=== PATIENT | male | born 1965 | race Caucasian/White ===

== ENCOUNTER 2023-05-06 16:09 | Outpatient (CLI) | payer OTHER, SELFPAY | END 2023-05-06 16:10 | disposition home or self-care (01) | LOC: NFLDREF 05-07 18:32 | PROVIDERS: PCP Family Medicine; Referring Provider Family Medicine; Visit Provider Nurse Practitioner Family | DX: R10.9 Unspecified abdominal pain (principal) | CPT/HCPCS: 87338 ==

== ENCOUNTER 2023-08-27 14:15 | Outpatient (CLI) | payer OTHER, SELFPAY | END 2023-08-27 14:16 | disposition home or self-care (01) | LOC: NFLDREF 08-29 06:21 | PROVIDERS: PCP Family Medicine; Referring Provider Family Medicine; Visit Provider Family Medicine | DX: R30.0 Dysuria (principal); Z12.5 Encounter for screening for malignant neoplasm of prostate | CPT/HCPCS: 84153 ==

== ENCOUNTER 2024-03-12 13:23 | Outpatient (CLI) | payer OTHER, SELFPAY ==
--- NOTE | 2024-03-12 13:45 | MR_ITS ---
[address] [address] Phone:?[phone] Fax:?[phone] Referring Physician Information: Denis Leyva M.D. [id number] [facility] [address] Phone:?[phone] Fax:?[phone] Patient:?Bentley An D.O.B:?1965 Sex:?Male Phone:?[phone] [facility] MRN:?[id number] Exam Date:?03/12/2024 EXAM: MRI of the RIGHT SHOULDER, without contrast CLINICAL: Evaluate for rotator cuff tear. COMPARISONS: X-rays dated 03/11/2024. TECHNICAL: Multiplanar multisequence MRI of the right shoulder was obtained. SEDATION: None. CONTRAST: None. FINDINGS: Rotator cuff: Supraspinatus/Infraspinatus: There is high-grade near full-thickness to full- thickness tearing involving the far anterior distal supraspinatus tendon seen on coronal series 4 images 8-9 and sagittal series 8 image 6-8. Moderate tendinosis and mild partial tearing of the remainder of the supraspinatus tendon and also involving the infraspinatus tendon. No significant fatty atrophy of the muscle bellies. Teres minor: No tendinosis, tear or atrophy. Subscapularis: There is high-grade partial tearing of the distal tendon seen on axial series 3.2 image 47. No significant fatty atrophy of the muscle belly. Bursae: Subacromial-subdeltoid: Mild bursal fluid. Subcoracoid: Moderate bursal fluid. Coracoacromial arch: Acromion morphology: Type II. No os acromiale. Acromiohumeral space: Within normal limits. Coracohumeral space: Within normal limits. Biceps tendon, long head: There is mild partial interstitial tearing of the intra-articular tendon. There is medial subluxation of the tendon in relation to the bicipital groove as seen on axial series 3.2 images 46-47. There is moderate fluid about the imaged proximal extra-articular tendon. Glenohumeral joint: Small volume of glenohumeral joint fluid is present with mild synovitis. Articular cartilage: No discrete chondral defects identified. Capsule: No convincing evidence of capsular thickening or injury. Labrum: There is mild degenerative fraying of the superior labrum. Remainder of the glenoid labrum appears intact. No perilabral cyst identified. Bones: No suspicious marrow signal alteration, fracture or dislocation. Acromioclavicular joint: Mild changes of arthrosis. No AC joint injury/widening. IMPRESSION: 1. High-grade near full-thickness to full-thickness tearing involving the far anterior distal supraspinatus tendon. Moderate tendinosis and mild partial tearing of the remainder of the supraspinatus tendon and also involving the infraspinatus tendon. 2. High-grade partial tearing of the distal subscapularis tendon. 3. Mild partial interstitial tearing of the intra-articular long head biceps tendon with medial subluxation of the tendon in relation to the bicipital groove. 4. Mild AC joint arthrosis. 5. Moderate subcoracoid bursitis with mild fluid within the subacromial/subdeltoid bursa. JCZ Electronically signed on 03/13/2024 9:01:00 AM by Toño Ortega D.O.
== END 2024-03-12 13:24 | disposition home or self-care (01) ==
LOC: MRI 13:24
PROVIDERS: PCP Family Medicine; Visit Provider Orthopaedic Surgery
DX: M25.511 Pain in right shoulder (principal); M75.101 Unspecified rotator cuff tear or rupture of right shoulder, not specified as traumatic; M19.011 Primary osteoarthritis, right shoulder; M75.51 Bursitis of right shoulder
CPT/HCPCS: 73221

== ENCOUNTER 2024-03-16 08:08 | Outpatient (CLI) | payer OTHER, SELFPAY | END 2024-03-16 08:09 | disposition home or self-care (01) | PROVIDERS: PCP Family Medicine; Visit Provider Family Medicine | DX: Z01.818 Encounter for other preprocedural examination (principal); E78.2 Mixed hyperlipidemia; Z12.5 Encounter for screening for malignant neoplasm of prostate | CPT/HCPCS: 80048; 80061; G0103 ==

== ENCOUNTER 2024-03-26 06:35 | Day surgery (SDC) | payer OTHER, SELFPAY ==
[2024-03-26] VITALS (14 sets, daily range): BP systolic 92–132; BP diastolic 47–75; PULSE 56–66; RESP 12–16; TEMP 36.3–36.9; O2SAT 94–98; BMI 24.0
[2024-03-26] MEDS: LACTATED RINGERS 1000 ML 1,000 ML 100 ML IV ×2 (07:20→09:21)
[2024-03-26] MEDS: SODIUM CHLORIDE 0.9 % (FLUSH) 10 ML SYRINGE IVF (07:20)
--- NOTE | 2024-03-26 08:02 | W.PM.H&PU ---
History & Physical Update History & Physical Update H&P Reviewed and patient assessed: No changes noted
[2024-03-26] MEDS: CEFAZOLIN 2 GM INJ IVP (08:14)
--- NOTE | 2024-03-26 08:53 | SUR.OPER ---
PATIENT QUESTIONS ANSWERED SATISFACTORILY PREOPERATIVELY. PATIENT BROUGHT TO OR #1 PER CART. Patient positioned supine on OR #1 bed. The perioperative team supported arms bilaterally on arm boards for the intubation. Final approval of positioning by surgeon.
--- NOTE | 2024-03-26 10:17 | W.ANESCHARGE ---
Anesthesia Charges Start Date/Time Anesthesia Start Date: 03/26/24 Anesthesia Start Time: 08:00 Stop Date/Time Anesthesia Stop Date: 03/26/24 Anesthesia Stop Time: 10:16
--- NOTE | 2024-03-26 10:47 | W.ANESCHARGE ---
Anesthesia Charges Start Date/Time Anesthesia Start Date: 03/26/24 Anesthesia Start Time: 08:00 Stop Date/Time Anesthesia Stop Date: 03/26/24 Anesthesia Stop Time: 10:16
[2024-03-26] MEDS: ACETAMINOPHEN 325 MG TABLET 650 MG PO (11:00)
--- NOTE | 2024-03-26 13:44 | PM.GSPRC ---
Operative Note Date of procedure: 03/26/24 Pre-op diagnosis: bilateral inguinal hernias Post-op diagnosis: 1. Left inguinal hernia, small indirect and large direct 2. Right inguinal hernia, small indirect Type of Procedure: bilateral laparoscopic inguinal hernia repair with placement of mesh Indications: Patient is a 58-year-old male who presented to clinic with a symptomatic left inguinal hernia. There was also a small right inguinal hernia appreciated on examination. Different treatment options were reviewed, please see consultation note for full discussion. Risks and benefits of operative intervention were discussed at length with the patient. Risks included but was not limited to: Bleeding, infection, risk of damage to surrounding structures, possible need for additional procedures, possible need to convert to an open operation and postoperative complications such as pneumonia, pulmonary emboli or RI. All questions and concerns were addressed with the patient agreeing to proceed. Procedure Description: After discussing the risks and benefits of the procedure, the patient signed informed consent.? The operative site was marked and the patient was brought to the operating room and placed on the operating table in supine position.? Care was taken to pad the patient's pressure points.?? The patient was then intubated by anesthesia.?? The operative site was then prepped and draped in the usual sterile fashion.? A time-out was then performed. A curvilinear incision was made below the umbilicus. Dissection was carried down to subcutaneous tissue until the anterior rectus fascia was encountered. This was incised off the midline. The rectus muscles were then retracted exposing the posterior fascia. A space maker port with a dissecting balloon was then introduced. The preperitoneal space was inflated under direct vision. The balloon was then removed and the preperitoneal space insufflated. A 10 mm 30 degree scope was then advanced and the area was surveyed for bleeding. Dissection began on the left side. Александр's ligament and the pubic bone was exposed medially. Following this dissection was carried out laterally. A small indirect and large defect was noted. The sac was dissected free from the cord structures using a combination of sharp and blunt dissection. Once the sac was completely reduced, the cord structures were dissected circumfrentially and a piece of Parietex mesh for the appropriate side was placed into the abdomen. This was positioned around the cord structures. A Tacker was used to attach the mesh medially at Александр's ligament. A single tack was placed laterally, taking care not to injure the underlying epigastrics. Attention was turned to the opposite side where a small indirect defect was noted and repair was completed in the same fashion. Once this was completed the sac was placed on top of the mesh and the preperitoneal space desufflated under direct vision. The ports were removed. The fascia from the infraumbilical port was closed with 0 Vicryl. The skin incisions were closed with absorbable subcuticular suture. Sterile dressings were then applied. The scrotum was examined to ensure that both testicles were down. Instrument sponge and needle counts were correct at the end of the case. Findings: left inguinal hernia, small indirect and large direct. right inguinal hernia, small indirect Anesthesia: GETRoger Surgeon: Ashley Toledo MD Estimated blood loss (mL): 5 Condition: stable Disposition: PACU
== END 2024-03-26 12:45 | disposition home or self-care (01) ==
PROVIDERS: PCP Family Medicine; Visit Provider Surgery
PROC: (CPT 49650; principal; 2024-03-26 08:00)
DX: K40.20 Bilateral inguinal hernia, without obstruction or gangrene, not specified as recurrent (principal)
CPT/HCPCS: 49650; 00860; 99284; A9270; C1781; J0690; J1100; J1885; J2250; J2405; J2704; J2710; J3010; J7120

== ENCOUNTER 2024-03-26 21:18 | Emergency (ER) | payer OTHER, SELFPAY ==
[2024-03-26 21:35] VITALS: BP 130/69; PULSE 96; RESP 16; TEMP 36.6; O2SAT 96; BMI 24.1
--- NOTE | 2024-03-26 22:54 | ED.GENADULT ---
HPI - General Adult General Chief complaint: Post Op Complication Stated complaint: Post-surgery, frequent urination, high heart rate Time Seen by Provider: 03/26/24 22:07 Source: patient, RN notes reviewed and old records reviewed Mode of arrival: ambulatory Limitations: no limitations History of Present Illness HPI narrative: Patient is a 58-year-old male who underwent located inguinal hernia repair under general anesthesia earlier today. He was discharged at 12:30 p.m.. He comes in tonight because he says his heart rate which usually is 55 has been 93 especially when he is up and walking around. Also, he has urinated 11 time since getting home. He does not have any dysuria. He has not had any bleeding or bruising from his incisions. No lightheadedness or fainting. Apparently he had a short run of SVT when he was undergoing a stress test at [place] number of years ago. He was concerned about possible SVT or other malignant cause for his unusually elevated heart rate. Related Data Home Medications Medication Instructions Recorded Confirmed famotidine 20 mg tablet (Pepcid) 20 mg PO QDAY 06/03/23 03/26/24 Saccharomyces boulardii 250 mg 250 mg PO BID 07/26/23 03/26/24 capsule (Daily Probiotic (S. boulardii)) loratadine 10 mg tablet (Claritin) 10 mg PO QDAY 03/11/24 03/26/24 [id number] 150 mcg-vit K1 tab PO 03/11/24 03/19/24 30 mcg-lycop 300 mcg-lutein tablet (Centrum Minis Men 50 Plus) Previous Rx's Medication Instructions Recorded triamcinolone acetonide 0.1 % 1 applic topical BID #30 grams 04/03/23 topical cream acyclovir 5 % topical ointment 1 applic topical 6XD 7 days #30 07/07/23 grams alprazolam 0.25 mg tablet 0.25 mg PO QDAY PRN anxiety #30 07/16/23 tabs atenolol 25 mg tablet 25 mg PO QDAY #90 tabs 03/16/24 finasteride 5 mg tablet 5 mg PO QDAY #90 tabs 03/16/24 pravastatin 40 mg tablet 40 mg PO QDAY #90 tabs 03/16/24 hydrocodone 5 mg-acetaminophen 325 1 tab PO Q4-6H PRN pain #15 tabs 03/19/24 mg tablet Allergies Allergy/AdvReac Type Severity Reaction Status Date / Time sertraline [From Zoloft] Allergy Severe Dizziness Verified 03/26/24 21:35 [facility] Medical History (Updated 03/26/24 @ 22:47 by Nydia Jamison MD) HSV-2 (herpes simplex virus 2) infection ?B00.9 - Herpesviral infection, unspecified (ICD-10) Supraventricular tachycardia ?I47.1 - Supraventricular tachycardia (ICD-10) Hyperlipidemia ?E78.5 - Hyperlipidemia, unspecified (ICD-10) Anxiety (12/15/12) ?F41.9 - Anxiety disorder, unspecified (ICD-10) Urethritis ?N34.2 - Other urethritis (ICD-10) Abdominal pain ?R10.9 - Unspecified abdominal pain (ICD-10) Family History Daughter Diabetes Other Parkinson disease Social History Smoking Status: Never smoker Do you use any of these nicotine containing products: None Second hand tobacco smoke exposure: No How often do you have a drink containing alcohol: monthly or less Alcohol type: wine How often do you have six or more drinks on one occasion: Never AUDIT-C Alcohol total score: 1 Non-prescribed substance use: denies use Caffeine: No Exam Narrative: Exam Narrative: Vital signs as noted above. In general, an alert, well-appearing patient. Head: Normocephalic, atraumatic. Eyes: Pupils are equal reactive. Extraocular movements are full. Conjunctivae are normal. ENT: Mucous membranes are moist. Neck: Supple without lymphadenopathy. Heart: Regular rate and rhythm. No murmur or rub. Lungs: Clear bilaterally. No increased work of breathing, crackles or wheezes. Abdomen: Soft and nontender. Incisions intact, no significant bruising, swelling, no erythema. Extremities: Well perfused. No edema. No calf tenderness. Pulses intact. Neurologic: Patient is alert and oriented to person and place. Speech is fluent. Face is symmetric. Moves all extremities equally. Affect: Anxious. Skin: Warm and dry. Well perfused. Const: Vital Signs, click to edit/add: Vital Signs - 24 hr 03/26/24 21:35 Temperature 98 F Pulse Rate [Femora l] 96 Respiratory Rate 16 Blood Pressure [Ri ght Upper Arm] 130/69 Pulse Oximetry 96 Oxygen Delivery Me thod Room Air Documenting provider has reviewed patient's vital signs: yes Course Course ED Course: Following our initial conversation, I suggested doing a urinalysis. Patient actually declined that. He says now that he thinks about it, they gave him 2 L of fluid during surgery and he has been drinking a lot of water. He feels he is probably urinating a lot because of this. With regard to his heart rate, we did do an EKG here, the shows normal sinus rhythm, ventricular rate of 71. He has a normal QT corrected, indices in axes are normal, no concerning findings on EKG. He feels relieved by this. Discussed that postop day 1 after anesthesia, it is normal for his system to be just a little bit off its baseline. I would anticipate things will revert more to his usual over the next few days. I have no reason to suspect infection, embolism, dehydration, anemia, or other concerning findings at this time. He has had no tachycardia here. Encouraged him to return for worsening symptoms. Otherwise, follow up as planned. Vital Signs Vital signs: Initial Vital Signs Temperature 98 F 03/26/24 21:35 Temperature Source Temporal Artery Scan 03/26/24 21:35 Pulse Rate 96 03/26/24 21:35 Pulse Rhythm Regular, Irregularly Irregular 03/26/24 21:35 Pulse Strength 3+ Normal 03/26/24 21:35 Respiratory Rate 16 03/26/24 21:35 Blood Pressure 130/69 03/26/24 21:35 Blood Pressure Mean 89 03/26/24 21:35 Pulse Oximetry 96 03/26/24 21:35 Oxygen Delivery Method Room Air 03/26/24 21:35 Vital Signs Temperature 98 F 03/26/24 21:35 Pulse Rate 96 03/26/24 21:35 Respiratory Rate 16 03/26/24 21:35 Blood Pressure 130/69 03/26/24 21:35 Pulse Oximetry 96 03/26/24 21:35 Oxygen Delivery Method Room Air 03/26/24 21:35 Temperature 98 F 03/26/24 21:35 Pulse Rate 96 03/26/24 21:35 Respiratory Rate 16 03/26/24 21:35 Blood Pressure 130/69 03/26/24 21:35 Pulse Oximetry 96 03/26/24 21:35 Oxygen Delivery Method Room Air 03/26/24 21:35 Discharge Plan Discharge Clinical Impression: Palpitations, Urinary frequency Patient Disposition: Home, Self-Care Condition: Stable Additional Instructions: Follow-up as planned with General surgery. Return as needed. Prescriptions: No Action triamcinolone acetonide 0.1 % cream 1 applic topical BID Qty: 30 1RF famotidine [Pepcid] 20 mg tablet 20 mg PO QDAY Saccharomyces boulardii [Daily Probiotic (S. boulardii)] 250 mg capsule 250 mg PO BID hydrocodone-acetaminophen 5-325 mg tablet 1 tab PO Q4-6H PRN (Reason: pain) Qty: 15 0RF atenolol 25 mg tablet 25 mg PO QDAY Qty: 90 3RF finasteride 5 mg tablet 5 mg PO QDAY Qty: 90 3RF pravastatin 40 mg tablet 40 mg PO QDAY Qty: 90 3RF Centrum Minis Men 50 Plus [id number] mcg tablet PO loratadine [Claritin] 10 mg tablet 10 mg PO QDAY acyclovir 5 % ointment 1 applic topical 6XD 7 Days Qty: 30 5RF alprazolam 0.25 mg tablet 0.25 mg PO QDAY PRN (Reason: anxiety) Qty: 30 2RF Follow Up/Referrals: Abisai Riley MD [Primary Care Provider] - Stand Alone Forms: [facility] Info Instructions
[2024-03-26 22:56] VITALS: PULSE 73
== END 2024-03-26 23:01 | disposition home or self-care (01) ==
PROVIDERS: Emergency Provider Emergency Medicine; PCP Family Medicine
DX: R00.2 Palpitations (principal)
CPT/HCPCS: 81001; 99284

== ENCOUNTER 2024-04-14 06:53 | Day surgery (SDC) | payer OTHER, SELFPAY ==
[2024-04-14] VITALS (15 sets, daily range): BP systolic 102–132; BP diastolic 47–83; PULSE 53–78; RESP 14–116; TEMP 36.6–37.2; O2SAT 92–98; BMI 24.5
--- OUTSIDE RECORDS SUMMARY | 2024-04-14 06:55 | XMS_ITS | Clinical Summary ---
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 0 09/08/2011 Active Active Problems No known active problems Immunizations Name Administration Dates Next Due Tdap 02/17/2008 Social History Tobacco Use Types Packs/Day Years Used Date Smoking Tobacco: Never Smokeless Tobacco: Never Alcohol Use Standard Drinks/Week Comments Not Asked 0 (1 standard drink = 0.6 oz pur e alcohol) Sex and Gender Information Value Date Recorded Sex Assigned at Not on file Gender Identity Not on file Sexual Orientation Not on file Obstetrics History Last Filed Vital Signs Vital Sign Reading Time Taken Comments Blood Pressure 140/72 09/08/2011 1:15 PM CDT Pulse 100 09/08/2011 1:15 PM CDT Temperature 37.2 ??C (99 ??F) 09/08/2011 1:15 PM CDT Respiratory Rate - - Oxygen Saturation - - Inhaled Oxygen Concentration - - Weight 74.2 kg (163 lb 9.6 oz) 09/08/2011 1:15 P M CDT Height 175.3 cm (5' 9) 09/08/2011 1:15 PM CDT Body Mass Index 24.16 09/08/2011 1:15 PM CDT Plan of Treatment Health Maintenance Due Date Last Done Comments Depression screening for age 12+ 1975 HIV for age 15-65 1978 BMI (ht and wt on same day) for age 18+ 1981 Hepatitis C screening for ag e 18-79 1981 Colonoscopy through age 75 2008 Lipids for age 45-75 2008 Zoster (shingles) series for age 50+ (1 of 2) 2013 Tetanus booster 02/16/2018 02/17/2008 COVID-19 vaccine series (2022-24 season) 2023 Influenza for age 50-64 07/19/2024 Tdap Completed 02/17/2008 Pneumococcal series for age 6-64 Aged Out No longer eligible based on patient's age to complete this topic Care Teams Acoustical Tile Patternmaker Relationship Specialty Start Date End Date Abisai Riley MD PCP - General Family Practice 09/08/11
[2024-04-14] MEDS: LACTATED RINGERS 1000 ML 1,000 ML 100 ML IV ×2 (07:45→10:16)
[2024-04-14] MEDS: SODIUM CHLORIDE 0.9 % (FLUSH) 10 ML SYRINGE IVF (07:45)
[2024-04-14] MEDS: CELECOXIB 200 MG CAPSULE PO (08:10)
[2024-04-14] MEDS: ACETAMINOPHEN 500 MG TABLET 1000 MG PO (08:10)
[2024-04-14] MEDS: OXYCODONE (CR) 10 MG TAB.ER.12H PO (08:10)
[2024-04-14] MEDS: MIDAZOLAM HCL 1 MG/ML inj IVP (08:22)
[2024-04-14] MEDS: fentaNYL 100 MCG/2 ML inj IVP (08:22)
--- NOTE | 2024-04-14 08:33 | SUR.PREOP ---
TIME?OUT:?0820, right shoulder PT/RN/MDA?VERIFICATION?OF?SURGICAL?SITE,?PROCEDURE,?AND?CONSENT OBTAINED?PRIOR?TO?INVASIVE?PROCEDURE.
--- NOTE | 2024-04-14 08:39 | W.PM.NB ---
Nerve Block Nerve Block Time Seen by Provider: 08:30 Date Seen: 04/14/24 Type of block requested by surgeon for post-operative analgesia: interscalene Side: right Time out performed: Yes Verification of patient name: Yes Verification of date of : Yes Site marking: site marked Name of person performing procedure: Jose Manuel Usha Continuous monitoring Was continuous monitoring of O2 sat, B/P, school bus monitor, recorded every 15 minutes?: Yes Procedure Checklist: sterile prep, needles and gloves Ultrasound guided. Images saved: Yes Medications given in 5ml increments after negative aspiration: Ropivicaine %: 0.5 mL: 25 Needle gauge: 21 Decadron (mg): 10 Precedex (mcg): 25 Patient tolerated procedure well: Yes Additional comments: Injected in 5mL increments after negative aspiration Block Charges Block Charge (with Pro Fee): Brachial Plexus Use of Ultrasound Machine for Block: Yes- US Guidance/pain block
[2024-04-14] MEDS: CEFAZOLIN 2 GM INJ IVP (09:15)
[2024-04-14] MEDS: EPINEPHrine 1 MG in SODIUM CHLORIDE IRRIG SOLUTION 3,000 ML 9003 MG IRRIGATION ×3 (09:50→10:14)
--- NOTE | 2024-04-14 11:04 | P.ORPRC_ITS ---
Procedure Note Date of procedure: 04/14/24 Procedure: PREOPERATIVE DIAGNOSIS: Right shoulder rotator cuff tear, AC joint arthrosis POSTOPERATIVE DIAGNOSIS: Right shoulder rotator cuff tear, AC joint arthrosis, labral tearing NAME OF OPERATION: Right shoulder arthroscopic subacromial decompression, distal clavicle excision, mini open rotator cuff repair, limited glenohumeral joint debridement SURGEON: Denis Leyva MD FINANCE BUSINESS PARTNER: ESTEPHANIA Deutsch ANESTHESIA: Supraclavicular block plus general endotracheal ESTIMATED BLOOD LOSS: 5 mL COMPLICATIONS: None SPECIMENS: None DRAINS: None PREOPERATIVE ANTIBIOTICS: Ancef 2 grams INDICATIONS: The patient is a 58-year-old with a history of right shoulder pain secondary to the above diagnoses. Despite appropriate non operative management, they continue to have symptoms. Operative intervention was recommended. The risks, benefits and expected outcomes were discussed in detail. These included but were not limited to: Infection, bleeding, injury to blood vessel or nerve, venous thromboembolism. All questions were answered to their satisfaction. PROCEDURE: A supraclavicular block was placed by Anesthesia. General anesthesia was administered. The patient was placed in the high beach chair position. The right shoulder was prepped and draped in the usual sterile fashion. The glenohumeral joint was infiltrated with 20 mL of normal saline with epinephrine. The posterior portal was established, the arthroscope was introduced. The anterior portal was established, Diagnostic arthroscopy was performed with findings as follows: The biceps has a minimal amount of tendinopathy, with medial subluxation. The anterior, posterior and superior labrum has age-appropriate degenerative tearing. Articular surfaces on the humeral head and glenoid are normal. There are no loose bodies. There is a full-thickness tear of the supraspinatus, into the subscap. The superior, anterior and posterior labrum was debrided with the shaver. Minimal debridement of the biceps was done with the shaver. The arthroscope was placed in the subacromial space, the lateral portal was established. The Arthrex Donaldson was used to dissect the acromion free. The CA ligament was recessed off the anterior acromion, the AC joint was exposed. There is a type 3 acromion. The rotator cuff tear occurs right under the anterior hook of the acromion. The acromioplasty was performed with the bur in the posterior portal. The bur was then placed in the lateral portal and the lateral and anterior aspect of the acromion were resected. The undersurface of the distal clavicle was resected through the lateral portal. Finally, the bur was placed in the anterior portal and the remainder of the distal clavicle was resected for a total of 10 mm. An accessory anterolateral portal was placed. The subacromial/subdeltoid bursa was aggressively debrided. There is a full-thickness tear of the supraspinatus., into the infraspinatus and subscap Arthroscopic instruments were removed. The accessory anterolateral portal was extended proximally and distally, subcutaneous dissection was taken with electrocautery to the deltoid. The deltoid was divided in line with its fibers. The static retractor was placed. The subacromial/subdeltoid bursa was debrided with the Guerra scissors. The greater tuberosity was debrided to punctate bleeding bone using the arthroscopic bur. The upper, lateral border of the subscap was taken down with the scalpel exposing the upper border of the lesser tuberosity. It was debrided to punctate bleeding bone with Lempert rongeur. An inverted mattress suture was placed in the subscap. This was used to repair the upper subscap to a 4.75 mm SwiveLock anchor in the upper, lateral border of lesser tuberosity, just medial to the biceps. Two Arthrex BioComposite SwiveLock anchors were placed just off the articular surface. Both limbs of the FiberWire and fiber tape were passed using the scorpion. A fiber link was placed in the leading edge of the rotator cuff x2. Two margin convergence sutures were placed to advance anterior leaflet of the rotator cuff laterally and posteriorly. This nicely covers the greater tuberosity. We tied the 2 central FiberWire sutures over the rotator cuff. We then proceeded with a lateral row of SwiveLock anchors x 2 crossing the FiberTape and incorporating the FiberWire and fiber link into each lateral row anchor. This provides an anatomic, watertight repair of the rotator cuff. There is no tension on the repair with the shoulder at 0? abduction. The wound was irrigated with normal saline off the pump. The deltoid was repaired with an 0 Vicryl in an interrupted [id number] fashion. Subcutaneous tissues were closed with a 3-0 Vicryl. Skin was closed with a 3-0 Monocryl in a subcuticular fashion. A dry dressing and sling were applied. Sponge and needle counts were correct x2. The patient tolerated the procedure well. There were no apparent complications. They were carefully transferred to the hospital bed and taken to the ostanesthesia care unit in satisfactory condition. PLAN: The patient will be discharged to home. No active range of motion of the shoulder will be allowed for 6 weeks postoperatively. They can work on active range of motion of the elbow, wrist and fingers. They will follow up in the office next week for a wound check and an AP and transscapular Y-view of the shoulder prior to being seen.
--- NOTE | 2024-04-14 11:43 | W.ANESCHARGE ---
Anesthesia Charges Start Date/Time Anesthesia Start Date: 04/14/24 Anesthesia Start Time: 08:50 Stop Date/Time Anesthesia Stop Date: 04/14/24 Anesthesia Stop Time: 11:32
== END 2024-04-14 13:28 | disposition home or self-care (01) ==
LOC: OR 06:53
PROVIDERS: PCP Family Medicine; Visit Provider Orthopaedic Surgery
PROC: (CPT 23412; principal; 2024-04-14 08:45)
DX: M75.101 Unspecified rotator cuff tear or rupture of right shoulder, not specified as traumatic (principal); M19.011 Primary osteoarthritis, right shoulder; S43.431A Superior glenoid labrum lesion of right shoulder, initial encounter; G89.18 Other acute postprocedural pain
CPT/HCPCS: 29826; 29824; 29822; 23412; 01630; 64415; 76942; A9270; C1713; J0171; J0330; J0690; J1100; J2250; J2371; J2405; J2704; J2795; J3010; J7120; L3670

== ENCOUNTER 2024-05-11 16:59 | Emergency (ER) | payer OTHER, SELFPAY ==
[2024-05-11 17:10] VITALS: BP 129/91; PULSE 95; RESP 18; TEMP 37.3; O2SAT 95; BMI 24.1
--- NOTE | 2024-05-11 17:19 | CRLHL7_ITS ---
For Patients: As a result of the 21st Century Cures Act, medical imaging exams and procedure reports are released immediately into your electronic medical record. You may view this report before your referring provider. If you have questions, please contact your health care provider. INDICATION: Elevated D-dimer, fever, recent shoulder surgery. COMPARISON: Right shoulder radiographs 04/22/2024. TECHNIQUE: CT of the chest acquired with 95 cc Isovue 370 IV contrast according to the PE protocol. Coronal and sagittal reconstructions. 2D and 3D MIP images for post processing were performed and interpreted on an independent workstation, and 3D images were permanently archived. FINDINGS: Normal heart size. Normal caliber thoracic aorta and central pulmonary arteries. No acute pulmonary embolism identified. No pericardial effusion. No thoracic lymphadenopathy. The thyroid gland appears normal. No focal consolidation, pleural effusion, or pneumothorax. Mild bibasilar dependent atelectasis. Biapical pleural scarring. 2 mm noncalcified pulmonary nodule in the posterior left lower lobe (series 5 image 83). No central endobronchial lesion or bronchial wall thickening. Few small hepatic cysts. Sludge or stones in the gallbladder. Subcentimeter hypodensity in the upper pole of the left kidney medially is too small to characterize. The visualized upper abdomen is otherwise unremarkable. Subacute fracture of the distal right clavicle. IMPRESSION: 1. Negative for acute pulmonary embolism. No focal lung infiltrates. 2. 2 mm noncalcified pulmonary nodule in the left lower lobe. Please see follow-up guidelines below. 3. Subacute fracture of the distal right clavicle. [employer] GUIDELINES - SOLID NODULES: : SINGLE LOW RISK - nodule less than 6 mm: No routine follow-up. - nodule 6-8 mm: CT at 6-12 months, then consider CT at 18-24 months. - nodule greater than 8 mm: Consider CT at 3 months, PET/CT or tissue sampling. SINGLE HIGH RISK - nodule less than 6 mm: Optional CT at 12 months. - nodule 6-8 mm: CT at 6-12 months, then CT at 18-24 months. - nodule greater than 8 mm: Consider CT at 3 months, PET/CT or tissue sampling. Please note that all CT scans at this facility use dose modulation, iterative reconstruction, and/or weight-based dosing when appropriate to reduce radiation dose to as low as reasonably achievable. Dictated by Elicia Hurt MD @ 05/11/2024 7:23:22 PM (Electronically Signed)
--- OUTSIDE RECORDS SUMMARY | 2024-05-11 17:32 | XMS_ITS | Clinical Summary ---
Author Organization [employer] [facility] Address [place], [place] [address] Care Team Providers Care Adobe Block Maker Name Role Phone Abisai Riley MD Primary Care Provider [phone] Allergies No known active allergies Medications Medication [...] age to complete this topic Care Teams Adobe Block Maker Relationship Specialty Start Date End Date Abisai Riley MD PCP - General Family Practice 09/08/11
--- NOTE | 2024-05-11 17:53 | ED.GENADULT ---
HPI - General Adult General Chief complaint: Fever Stated complaint: Possible blood clot Time Seen by Provider: 05/11/24 17:19 Source: patient Mode of arrival: ambulatory Limitations: no limitations History of Present Illness HPI narrative: 58-year-old male presenting today with concerns about a PE. Patient was seen in the urgent care today for increased fatigue. States that he has had 2 surgeries in the last 3 weeks, rotator cuff repair any bilateral inguinal hernia repair. He feels like he has been doing really well postoperatively until last which was 4 days ago when he began to feel more fatigued. He states that by the end of the day he is exhausted and this is very unusual for him. He walks a mi every daily walking the dog and has noticed that his pulse is higher than usual. Generally is pulses around 55, when he gets up and moving goes to around 90 which is again not like him. He also had a low-grade temperature the other day has not had another 1 since. He denies feeling short of breath, no chest pain or abdominal pain. He denies increasing pain at the site of his incisions. He denies redness or skin changes. He denies any urinary symptoms including increased frequency urgency or dysuria. He denies diarrhea or constipation. He denies changes in his appetite, states that he has been eating and drinking well. He denies cough, headache. He is taking mainly Tylenol for postop pain, only took 2 days of oxycodone has not needed it since. In the urgent care today patient had a CBC that was unremarkable, a normal urinalysis, negative triple swab, and normal electrolytes. D-dimer high, however, was elevated at 1480. Patient was sent to the ER for further imaging. Related Data Home Medications ?Medication ?Instructions ?Recorded ?Confirmed famotidine 20 mg tablet (Pepcid) 20 mg PO QDAY 06/03/23 05/11/24 Saccharomyces boulardii 250 mg 250 mg PO BID 07/26/23 05/11/24 capsule (Daily Probiotic (S. boulardii)) loratadine 10 mg tablet (Claritin) 10 mg PO QDAY 03/11/24 05/11/24 [id number] 150 mcg-vit K1 tab PO 03/11/24 05/11/24 30 mcg-lycop 300 mcg-lutein tablet (Centrum Minis Men 50 Plus) Previous Rx's ?Medication ?Instructions ?Recorded triamcinolone acetonide 0.1 % 1 applic topical BID #30 grams 04/03/23 topical cream acyclovir 5 % topical ointment 1 applic topical 6XD 7 days #30 07/07/23 grams alprazolam 0.25 mg tablet 0.25 mg PO QDAY PRN anxiety #30 07/16/23 tabs atenolol 25 mg tablet 25 mg PO QDAY #90 tabs 03/16/24 finasteride 5 mg tablet 5 mg PO QDAY #90 tabs 03/16/24 pravastatin 40 mg tablet 40 mg PO QDAY #90 tabs 03/16/24 Allergies Allergy/AdvReac Type Severity Reaction Status Date / Time sertraline [From Zoloft] Allergy Severe Dizziness Verified 05/11/24 18:37 Review of Systems Status of ROS: Reports: 10 or more systems reviewed and unremarkable except as noted in History and below [facility] Medical History Health care directive on file ?Z78.9 - Other specified health status (ICD-10) HSV-2 (herpes simplex virus 2) infection ?B00.9 - Herpesviral infection, unspecified (ICD-10) Supraventricular tachycardia ?I47.1 - Supraventricular tachycardia (ICD-10) Hyperlipidemia ?E78.5 - Hyperlipidemia, unspecified (ICD-10) Anxiety (12/15/12) ?F41.9 - Anxiety disorder, unspecified (ICD-10) Urethritis ?N34.2 - Other urethritis (ICD-10) Abdominal pain ?R10.9 - Unspecified abdominal pain (ICD-10) Family History Daughter Diabetes Other Parkinson disease Social History Smoking Status: Never smoker Do you use any of these nicotine containing products: None Second hand tobacco smoke exposure: No How often do you have a drink containing alcohol: monthly or less Alcohol type: wine How often do you have six or more drinks on one occasion: Never AUDIT-C Alcohol total score: 1 Non-prescribed substance use: denies use Caffeine: No Exam Narrative: Exam Narrative: Well-nourished well-developed patient in no acute distress. Alert and oriented. Answers questions appropriately. Mood and affect are appropriate. Thoughts are goal oriented and rational. No tangential or magical thinking noted. Patient speaks in full sentences without needing to catch his breath. Vitals are normal. HEENT: Normocephalic atraumatic. Pupils are equally round reactive to light. Extraocular muscles are intact. Conjunctivae are moist without any icterus noted. Moist mucous membranes. Posterior pharynx is normal. Neck is soft without lymphadenopathy. Cardiovascular: Heart is regular rate and rhythm S1 and S2 are present without any murmurs. Lungs: Clear to auscultation bilaterally no wheezes rhonchi or rales are appreciated. Patient takes deep breaths without any discomfort. Abdomen: Soft and nontender nondistended with normal bowel sounds. Extremities: Bilateral lower extremities are without edema. Skin: Well perfused without any obvious rashes. Incision over the right shoulder appears to be healing well without any evidence of infection. Const: Vital Signs, click to edit/add: Vital Signs - 24 hr 05/11/24 17:10 Temperature 99.1 F Pulse Rate [Right Pulse Oximeter] 95 Respiratory Rate 18 Blood Pressure [Le ft Upper Arm] 129/91 H Pulse Oximetry 95 Oxygen Delivery Me thod Room Air Course Course ED Course: EKG, read by me, shows normal sinus rhythm with a pulse of 87. We also added LFTs, TSH and a troponin: LFTs are normal, TSH was normal, normal troponin. Proceeded with a chest CT PE protocol: Unremarkable. 2 mm pulmonary nodule. Vital Signs Vital signs: Initial Vital Signs Temperature 99.1 F 05/11/24 17:10 Temperature Source Temporal Artery Scan 05/11/24 17:10 Pulse Rate 95 05/11/24 17:10 Pulse Rhythm Regular 05/11/24 17:10 Pulse Strength 3+ Normal 05/11/24 17:10 Respiratory Rate 18 05/11/24 17:10 Blood Pressure 129/91 H 05/11/24 17:10 Blood Pressure Mean 103 05/11/24 17:10 Blood Pressure Position Sitting 05/11/24 17:10 Pulse Oximetry 95 05/11/24 17:10 Oxygen Delivery Method Room Air 05/11/24 17:10 Vital Signs Temperature 99.1 F 05/11/24 17:10 Pulse Rate 95 05/11/24 17:10 Respiratory Rate 18 05/11/24 17:10 Blood Pressure 129/91 H 05/11/24 17:10 Pulse Oximetry 95 05/11/24 17:10 Oxygen Delivery Method Room Air 05/11/24 17:10 Temperature 99.1 F 05/11/24 17:10 Pulse Rate 95 05/11/24 17:10 Respiratory Rate 18 05/11/24 17:10 Blood Pressure 129/91 H 05/11/24 17:10 Pulse Oximetry 95 05/11/24 17:10 Oxygen Delivery Method Room Air 05/11/24 17:10 Medical Decision Making MDM Narrative Medical decision making narrative: 58 year-old male with postoperative fatigue. Workup was unremarkable. Patient reassured. We discussed reasons for follow-up in having a low threshold to do so. Also discussed small pulmonary nodule in following up with primary care to discuss if follow-up imaging is needed. Medical Records Medical records reviewed: Yes I reviewed the patient's medical records Lab Data Lab results reviewed: Yes I reviewed the patient's lab results Labs: Lab Results 05/11/24 05/11/24 05/11/24 Range/Units 17:44 17:44 17:44 Creatinine 0.8 (0.5-1.5) mg/dL Estimated Creat Clear 98.19 Estimated GFR 101 ml/min Total Bilirubin 0.5 (0.1-1.5) mg/dL Direct Bilirubin 0.4 (0.0-0.5) mg/dL AST 30 (12-35) U/L ALT 23 (4-50) U/L Alkaline Phosphatase 97 (40-150) U/L Troponin I < 0.01 L (0.01-0.04) ng/mL C-Reactive Protein 2.5 H Cancelled (0.5-1.0) mg/dL Total Protein 8.1 (6.0-8.3) g/dL Albumin 4.8 (3.3-5.0) g/dL TSH Cancelled 0.[address] scan - chest: Attestation: I have reviewed the pertinent imaging results. Radiologist's impression: CT of the chest acquired with 95 cc Isovue 370 IV contrast according to the PE protocol. Coronal and sagittal reconstructions. 2D and 3D MIP images for post processing were performed and interpreted on an independent workstation, and 3D images were permanently archived. FINDINGS: Normal heart size. Normal caliber thoracic aorta and central pulmonary arteries. No acute pulmonary embolism identified. No pericardial effusion. No thoracic lymphadenopathy. The thyroid gland appears normal. No focal consolidation, pleural effusion, or pneumothorax. Mild bibasilar dependent atelectasis. Biapical pleural scarring. 2 mm noncalcified pulmonary nodule in the posterior left lower lobe (series 5 image 83). No central endobronchial lesion or bronchial wall thickening. Few small hepatic cysts. Sludge or stones in the gallbladder. Subcentimeter hypodensity in the upper pole of the left kidney medially is too small to characterize. The visualized upper abdomen is otherwise unremarkable. Subacute fracture of the distal right clavicle. IMPRESSION: 1. Negative for acute pulmonary embolism. No focal lung infiltrates. 2. 2 mm noncalcified pulmonary nodule in the left lower lobe. Please see follow-up guidelines below. 3. Subacute fracture of the distal right clavicle. ECG Data Attestation: I personally reviewed and interpreted this ECG as follows: Discharge Plan Discharge Clinical Impression: Fatigue Patient Disposition: Home, Self-Care Condition: Unchanged Additional Instructions: Your workup today was unremarkable, no evidence of infection, inflammation or blood clots were found. You do have a very small nodule in 1 of your lungs that is likely a benign finding, however this is something you should bring up to your primary care provider to discuss whether or not you need follow-up images done. I recommend that you rest more frequently throughout the day, follow-up with your primary care as needed. Return to the ER if you develop a temperature of 100.5? or greater, vomiting, or shortness of breath. Prescriptions: No Action triamcinolone acetonide 0.1 % cream 1 applic topical BID Qty: 30 1RF famotidine [Pepcid] 20 mg tablet 20 mg PO QDAY Saccharomyces boulardii [Daily Probiotic (S. boulardii)] 250 mg capsule 250 mg PO BID atenolol 25 mg tablet 25 mg PO QDAY Qty: 90 3RF finasteride 5 mg tablet 5 mg PO QDAY Qty: 90 3RF pravastatin 40 mg tablet 40 mg PO QDAY Qty: 90 3RF Centrum Minis Men 50 Plus [phone] mcg tablet PO loratadine [Claritin] 10 mg tablet 10 mg PO QDAY acyclovir 5 % ointment 1 applic topical 6XD 7 Days Qty: 30 5RF alprazolam 0.25 mg tablet 0.25 mg PO QDAY PRN (Reason: anxiety) Qty: 30 2RF Follow Up/Referrals: Abisai Riley MD [Primary Care Provider] - Stand Alone Forms: [email or web address] Info Instructions
[2024-05-11 18:12] LABS: Albumin* 4.8 g/dL (3.3-5.0)
[2024-05-11 18:15] LABS: Alkaline Phosphatase* 97 U/L (40-150); Aspartate Amino Transferase* 30 U/L (12-35); Bilirubin Direct* 0.4 mg/dL (0.0-0.5); Bilirubin Total* 0.5 mg/dL (0.1-1.5); Creatinine* 0.8 mg/dL (0.5-1.5); Est. Creatinine Clearance* 98.19; Estimated Glomerular Filt Rate 101 ml/min; Total Protein* 8.1 g/dL (6.0-8.3)
[2024-05-11 18:16] LABS: Alanine Aminotransferase* 23 U/L (4-50)
[2024-05-11 18:18] LABS: C Reactive Protein* 2.5 mg/dL (0.5-1.0)
[2024-05-11 18:31] LABS: Troponin I* < 0.01 ng/mL (0.01-0.04)
[2024-05-11 18:46] LABS: Thyroid Stimulating Hormone* 0.341 uIU/mL (0.270-4.20)
== END 2024-05-11 19:51 | disposition home or self-care (01) ==
PROVIDERS: Emergency Provider Family Medicine; PCP Family Medicine
DX: R53.83 Other fatigue (principal)
CPT/HCPCS: 36415; 71275; 80076; 82565; 84443; 84484; 86140; 93005; 99284; 99285; Q9967

== ENCOUNTER 2024-05-18 12:36 | Outpatient (CLI) | payer OTHER, SELFPAY ==
--- OUTSIDE RECORDS SUMMARY | 2024-05-18 12:41 | XMS_ITS | Clinical Summary ---
Author Organization [employer] [facility] Address [place], [place] [address] Care Team Providers Care Batch Unloader Name Role Phone Abisai Riley MD Primary Care Provider [phone] Allergies No known active allergies Medications Medication [...] age to complete this topic Care Teams Batch Unloader Relationship Specialty Start Date End Date Abisai Riley MD PCP - General Family Practice 09/08/11
--- NOTE | 2024-05-18 13:00 | CRLHL7_ITS ---
For Patients: As a result of the Century Cures Act, medical imaging exams and procedure reports are released immediately into your electronic medical record. You may view this report before your referring provider. If you have questions, please contact your health care provider. Indication: BILATERAL INGUINAL HERNIA - CHECKING NEW BULGE POST SURG Technique: CT Abdomen/Pelvis W/ 80CC ISOVUE 370 Please note that all CT scans at this facility use dose modulation, iterative reconstruction, and/or weight-based dosing when appropriate to reduce radiation dose to as low as reasonably achievable. Comparison: CT chest 05/11/2024 Findings: Asymmetric musculature about the lower left lateral chest wall, incidental. Mild atelectasis in both lung bases. No pleural effusion. Simple intrahepatic cysts are present measuring up to 1.7 cm. Benign-appearing area of density adjacent to the falciform ligament. Gallbladder incompletely distended. The spleen is normal. Normal adrenal glands. Pancreas normal. Subcentimeter cyst left kidney. Right kidney unremarkable. The bladder is normal. Prostate calcifications noted. Incidental calcification about the perineal tissues. Increased stool within the rectum. Postop changes of bilateral inguinal hernia repair. No fluid collection or recurrent hernia. A small incidental fat filled umbilical hernia is present measuring 1.4 cm mild degenerative changes lumbar spine. No fracture. Spurring at both hip joints. Impression: Postop changes bilateral inguinal hernia repair. No hernia recurrence or fluid collection. Moderate stool throughout the colon including excess rectal stool consistent with constipation. No bowel obstruction. 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 Incidental benign lesions within the liver. Please note that all CT scans at this facility use dose modulation, iterative reconstruction, and/or weight-based dosing when appropriate to reduce radiation dose to as low as reasonably achievable. Dictated by Daryn Hardwick MD @ 05/18/2024 1:42:44 PM (Electronically Signed)
== END 2024-05-18 12:37 | disposition home or self-care (01) ==
PROVIDERS: PCP Family Medicine; Visit Provider Surgery
DX: K40.20 Bilateral inguinal hernia, without obstruction or gangrene, not specified as recurrent (principal); K76.9 Liver disease, unspecified
CPT/HCPCS: 74177; Q9967

== ENCOUNTER 2024-08-06 08:45 | Outpatient (RCR) | payer OTHER, SELFPAY | END 2024-12-01 10:54 | disposition home or self-care (01) | PROVIDERS: PCP Family Medicine; Visit Provider Orthopaedic Surgery | DX: Z98.890 Other specified postprocedural states (principal); Z51.89 Encounter for other specified aftercare | CPT/HCPCS: 97110; 97162 ==

== ENCOUNTER 2024-08-20 11:00 | Emergency (ER) | payer OTHER, SELFPAY ==
[2024-08-20 11:06] VITALS: BP 135/72; PULSE 61; RESP 16; TEMP 37.1; O2SAT 99; BMI 24.4
--- NOTE | 2024-08-20 11:44 | ED.GENADULT ---
HPI - General Adult General Chief complaint: Abdominal Pain Stated complaint: lower R abdominal pain Time Seen by Provider: 08/20/24 11:15 Source: patient Mode of arrival: ambulatory Limitations: no limitations History of Present Illness HPI narrative: 59-year-old male presents today with right lower quadrant abdominal pain that started last night. Certain movements make it worse, sitting still makes it better. He denies any fevers or chills. He denies nausea or vomiting. He denies any diarrhea or constipation. Last bowel movement was yesterday and was normal. He denies any urinary symptoms such as increased frequency, urgency or dysuria. He denies any changes in color or smell of his urine. He states that the pain comes and goes and is not constant, it lasts seconds. Patient is concerned about the possibility of appendicitis. Related Data Home Medications ?Medication ?Instructions ?Recorded ?Confirmed famotidine 20 mg tablet (Pepcid) 20 mg PO QDAY 06/03/23 07/08/24 Saccharomyces boulardii 250 mg 250 mg PO BID 07/26/23 07/08/24 capsule (Daily Probiotic (S. boulardii)) loratadine 10 mg tablet (Claritin) 10 mg PO QDAY 03/11/24 07/08/24 [id number] 150 mcg-vit K1 tab PO 03/11/24 07/08/24 30 mcg-lycop 300 mcg-lutein tablet (Centrum Minis Men 50 Plus) Previous Rx's ?Medication ?Instructions ?Recorded triamcinolone acetonide 0.1 % 1 applic topical BID #30 grams 04/03/23 topical cream acyclovir 5 % topical ointment 1 applic topical 6XD 7 days #30 07/07/23 grams atenolol 25 mg tablet 25 mg PO QDAY #90 tabs 03/16/24 finasteride 5 mg tablet 5 mg PO QDAY #90 tabs 03/16/24 pravastatin 40 mg tablet 40 mg PO QDAY #90 tabs 03/16/24 alprazolam 0.25 mg tablet 0.25 mg PO QDAY PRN anxiety #30 05/20/24 tabs Allergies Allergy/AdvReac Type Severity Reaction Status Date / Time sertraline [From Zoloft] Allergy Severe Dizziness Verified 08/20/24 11:09 Review of Systems Status of ROS: Reports: 10 or more systems reviewed and unremarkable except as noted in History and below [facility] Medical History Urethritis ?N34.2 - Other urethritis (ICD-10) Abdominal pain ?R10.9 - Unspecified abdominal pain (ICD-10) Surgical History History of arthroscopy of right shoulder (04/14/24) ?Z98.890 - Other specified postprocedural states (ICD-10) S/P inguinal hernia repair, follow-up exam ?Z09 - Encounter for follow-up examination after completed treatment for conditions other than malignant neoplasm (ICD-10) Family History Daughter Diabetes Other Parkinson disease Social History Smoking Status: Never smoker Do you use any of these nicotine containing products: None Second hand tobacco smoke exposure: No How often do you have a drink containing alcohol: monthly or less Alcohol type: wine How often do you have six or more drinks on one occasion: Never AUDIT-C Alcohol total score: 1 Non-prescribed substance use: denies use Caffeine: No Exam Narrative: Exam Narrative: Well-nourished well-developed patient in no acute distress. Alert and oriented. Answers questions appropriately. Mood and affect are appropriate. Thoughts are goal oriented and rational. No tangential or magical thinking noted. Patient speaks in full sentences without needing to catch his breath. HEENT: Normocephalic atraumatic. Pupils are equally round reactive to light. Extraocular muscles are intact. Conjunctivae are moist without any icterus noted. Moist mucous membranes. Posterior pharynx is normal. Cardiovascular: Heart is regular rate and rhythm S1 and S2 are present without any murmurs. Lungs: Clear to auscultation bilaterally no wheezes rhonchi or rales are appreciated. Patient takes deep breaths without any discomfort. Abdomen: Soft and nondistended with normal bowel sounds. Patient has no periumbilical tenderness or pain at McBurney's point. He does have tenderness in the inguinal region. There is no swelling, erythema or masses appreciated in the area. Const: Vital Signs, click to edit/add: Vital Signs - 24 hr 08/20/24 11:06 Temperature 98.7 F Pulse Rate [Left P ulse Oximeter] 61 Respiratory Rate 16 Blood Pressure [Ri ght Upper Arm] 135/72 Pulse Oximetry 99 Oxygen Delivery Me thod Room Air Course Course ED Course: Given the characteristics and location of the patient's pain, I do not think this represents an acute appendicitis. The final diagnosis at this time he thinks he has pain from forming scar tissue status post inguinal hernia repair, UTI. His blood work was unremarkable, no evidence of infection or inflammation. UA was unremarkable. Urine culture pending. Given the mild nature of his pain, I do not think that further imaging is necessary at this time. We discussed reasons to return to the ER. Vital Signs Vital signs: Initial Vital Signs Temperature 98.7 F 08/20/24 11:06 Temperature Source Temporal Artery Scan 08/20/24 11:06 Pulse Rate 61 08/20/24 11:06 Respiratory Rate 16 08/20/24 11:06 Blood Pressure 135/72 08/20/24 11:06 Blood Pressure Mean 93 08/20/24 11:06 Blood Pressure Position Sitting 08/20/24 11:06 Pulse Oximetry 99 08/20/24 11:06 Oxygen Delivery Method Room Air 08/20/24 11:06 Vital Signs Temperature 98.7 F 08/20/24 11:06 Pulse Rate 61 08/20/24 11:06 Respiratory Rate 16 08/20/24 11:06 Blood Pressure 135/72 08/20/24 11:06 Pulse Oximetry 99 08/20/24 11:06 Oxygen Delivery Method Room Air 08/20/24 11:06 Temperature 98.7 F 08/20/24 11:06 Pulse Rate 61 08/20/24 11:06 Respiratory Rate 16 08/20/24 11:06 Blood Pressure 135/72 08/20/24 11:06 Pulse Oximetry 99 08/20/24 11:06 Oxygen Delivery Method Room Air 08/20/24 11:06 Medical Decision Making MDM Narrative Medical decision making narrative: Inguinal pain. Plan per above Lab Data Lab results reviewed: Yes I reviewed the patient's lab results Labs: Lab Results 08/20/24 08/20/24 Range/Units 11:43 12:05 WBC 7.83 (4.50-11.00) K/uL RBC 5.13 (4.30-5.90) m/uL Hgb 16.1 (13.5-17.5) gm/dL Hct 48.2 (37.0-53.0) % MCV 94 (80-100) fL MCH 31 (26-34) pg MCHC 33 (32-36) gm/dL RDW Coeff of Jose 12.1 (11.5-15.5) % Plt Count 201 (140-440) K/uL Neut % (Auto) 81.9 H (42.0-72.0) % Lymph % (Auto) 12.0 L (20-44) % Alfalfa % (Auto) 5.2 (0.0-11.0) % Eos % (Auto) 0.3 (0.0-7.0) % Baso % (Auto) 0.5 (0.0-3.0) % Neut # (Auto) 6.40 (1.7-7.0) K/uL Lymph # (Auto) 0.90 (0.90-2.90) K/uL Alfalfa # (Auto) 0.40 (0.00-0.90) K/UL Eos # (Auto) 0.02 (0.00-0.50) K/uL Baso # (Auto) 0.04 (0.00-0.30) K/uL Abs Immat Gran (auto) 0.01 (0.00-0.30) K/uL Imm/Tot Granulo (auto) 0.1 % Sodium 139 (135-149) mmol/L Potassium 3.7 (3.6-5.1) mmol/L Chloride 103 (96-114) mmol/L Carbon Dioxide 27 (20-32) mmol/L Anion Gap 9 (7-15) mEq/L BUN 13 (7-30) mg/dL Creatinine 0.8 (0.5-1.5) mg/dL Estimated Creat Clear 77.57 Estimated GFR 101 ml/min Glucose 135 H (60-115) mg/dL Lactate 1.2 (0.5-1.9) mmol/L Calcium 9.3 (8.4-10.6) mg/dL C-Reactive Protein < 0.5 L (0.5-1.0) mg/dL Urine Color Yellow (Yellow) Urine Appearance Clear (Clear) Urine pH 7.0 (5.0-8.5) Ur Specific [place] 1.015 (1.000-1.030) Urine Protein Negative (Negative) Urine Glucose (UA) Negative (Negative) Urine Ketones Negative (Negative) Urine Blood Negative (Negative) Urine Nitrite Negative (Negative) Urine Bilirubin Negative (Negative) Urine Urobilinogen 0.2 (0.2-1.0) Ur Leukocyte Esterase Negative (Negative) Urine RBC 0-2 (0-2) Urine WBC 0-2 (0-5) Ur Squamous Epith Cells None (None-Few) Urine Bacteria None (None) Discharge Plan Discharge Clinical Impression: Inguinal pain Patient Disposition: Home, Self-Care Condition: Stable Additional Instructions: Your workup was unremarkable today. Recommend ibuprofen as needed for discomfort. If your pain becomes constant, or you develop fever or vomiting, would return for re-evaluation. Prescriptions: No Action triamcinolone acetonide 0.1 % cream 1 applic topical BID Qty: 30 1RF famotidine [Pepcid] 20 mg tablet 20 mg PO QDAY Saccharomyces boulardii [Daily Probiotic (S. boulardii)] 250 mg capsule 250 mg PO BID atenolol 25 mg tablet 25 mg PO QDAY Qty: 90 3RF finasteride 5 mg tablet 5 mg PO QDAY Qty: 90 3RF pravastatin 40 mg tablet 40 mg PO QDAY Qty: 90 3RF Centrum Minis Men 50 Plus [id number] mcg tablet PO loratadine [Claritin] 10 mg tablet 10 mg PO QDAY alprazolam 0.25 mg tablet 0.25 mg PO QDAY PRN (Reason: anxiety) Qty: 30 2RF acyclovir 5 % ointment 1 applic topical 6XD 7 Days Qty: 30 5RF Follow Up/Referrals: Abisai Riley MD [Primary Care Provider] - Stand Alone Forms: [employer] Info Instructions
[2024-08-20 11:48] LABS: Lactate* 1.2 mmol/L (0.5-1.9)
[2024-08-20 11:49] LABS: Basophils Absolute Auto 0.04 K/uL (0.00-0.30); Basophils Percent Auto 0.5 % (0.0-3.0); Eosinophils Absolute Auto 0.02 K/uL (0.00-0.50); Eosinophils Percent Auto 0.3 % (0.0-7.0); Hematocrit 48.2 % (37.0-53.0); Hemoglobin* 16.1 gm/dL (13.5-17.5); Immature Granulocytes Abs Auto 0.01 K/uL (0.00-0.30); Immature Granulocytes Pct Auto 0.1 %; Mean Corpuscular HGB Conc 33 gm/dL (32-36); Mean Corpuscular Hemoglobin 31 pg (26-34); Mean Corpuscular Volume 94 fL (80-100); Monocytes Percent Auto 5.2 % (0.0-11.0); Neutrophils Percent Auto 81.9 % (42.0-72.0); Platelet Count* 201 K/uL (140-440); RDW Coefficient of Variation % 12.1 % (11.5-15.5); Red Blood Count 5.13 m/uL (4.30-5.90); White Blood Count* 7.83 K/uL (4.50-11.00)
[2024-08-20 11:50] LABS: Slide Review Reflex No
--- OUTSIDE RECORDS SUMMARY | 2024-08-20 11:53 | XMS_ITS ---
Author Organization [facility] Address [address] [place] [address] Care Team Providers Care Assistant Community Manager Name Role Phone Unavailable Unavailable Unavailable Surgery Details Not on file Complications Check Surgery Details section. Procedure Estimated Blood Loss Check Surgery Details section. Procedure Findings Check Surgery Details section. Procedure Specimens Taken Check Surgery Details section.
--- OUTSIDE RECORDS SUMMARY | 2024-08-20 11:53 | XMS_ITS | Encounter Summary ---
Author Organization [facility] Address [address] [place] [address] Care Team Providers Care Tobacco Stripping Machine Operator Name Role Phone Unavailable Primary Care Provider Unavailabl e Reason for Visit * Appointment Request (Routine) - Closed Specialty Diagnoses / Procedures Referred By Contedward t Referred To Contact Dermatology Diagnoses Lesion Skin Referral ID Status Reason Start Date Expiration Date Visits Re quested Visits Authorized [id number] Closed 06/22/2024 06/22/2025 1 1 Encounter Details Date Type Department Care Team (Latest Contact Info) Description 06/22/2024 3:20 PM CDT Comprehensive Visit Department of Dermatology in [place], [place] [address] [place] [address] Eduarda Angela M.D. [address] [place] [address] Keratosis Actinic (Primary Dx); Keratosis Seborrheic Discharge Disposition: Home or Self Care Social History Tobacco Use Types Packs/Day Years Used Date Smoking Tobacco: Never [facility] Utilities Answer Date Recorded In the past 12 months has e electric, gas, oil, or water company threatened to shut off services in your home? No 06/22/2024 Exercise Vital Sign Answer Date Recorde d On average, how many days pe r week do you engage in moderate to strenuous exercise (like a brisk walk)? 6 days 06/22/2024 On average, how many minutes do you engage in exercise at this level? 30 min 06/22/2024 Hunger Vital Sign Answer Date Recorded Within the past 12 months, y ou worried that your food would run out before you got the money to buy more. Never true 06/22/20 Within the past 12 months, t he food you bought just didn't last and you didn't have money to get more. Never true 06/22/2024 PRAPARE - Transportation Answer Date Re corded In the past 12 months, has l ack of transportation kept you from medical appointments or from getting medications? No 03/2024 In the past 12 months, has l ack of transportation kept you from meetings, work, or from getting things needed for daily living? No 06/22/2024 Nutrition Answer Date Recorded On average, how many serving s of fruits and vegetables do you eat per day (serving size is equal to 1 cup or approximately the size of a tennis ball)? 0-2 06/22/2024 Dental Answer Date Recorded Dental: Regular Dentist Yes 06/22/20 Employment Answer Date Recorded Employment status Retired 06/22/2024 Housing Stability Answer Date Recorded What is your living situation today? I have a [facility] place to live 06/22/2024 Sex and Gender Information Value Date Recorded Sex Assigned at Male 10/28/2023 9:51 AM FURNACE COMBINATION ANALYST Gender Identity Male 10/28/2023 9:51 AM FURNACE COMBINATION ANALYST Sexual Orientation Straight 10/28/2023 9: 51 AM FURNACE COMBINATION ANALYST documented as of this encounter Consult Notes * German Panda M.D. - 06/22/2024 3:20 PM CDT Dermatology Note - New Patient SUBJECTIVE CHIEF COMPLAINT Spot check, left cheek HISTORY OF PRESENT ILLNESS Bentley An is a 58 y.o. male, who presents to [facility] on 06/22/24 for the above chief complaint. He states he has a spot on his left cheek that has been present for severalmonths. The spot often scabs off, but then recurs. He also notes an additional spot that is about an inch superior to the other spot that he noted over the past 2 weeks that is asymptomatic. PAST MEDICAL HISTORY No history of skin cancer FAMILY HISTORY No family history of skin cancer OBJECTIVE PHYSICAL EXAMINATION General: Awake, alert, in no acute distress, and with appropriate affect. Skin: I have examined the scalp, and face per patient request. Caldwell skin type 2. Erythematous scaly macule on the left cheek. Flesh-colored stuck on papule on the left cheek ASSESSMENT / PLAN #Actinic keratosis, left cheek The patient's lesion of concern is consistent with an actinic keratosis. Given the precancerous nature of this lesion(s), treatment is medically indicated. CONSENT Discussed the risks, benefits, alternatives, and the necessity of other members of the healthcare team participating in the procedure. All questions answered and consent given. PROCEDURE INFORMATION Given the precancerous nature of this lesion(s), treatment is medically indicated. After discussionof the risks, benefits and alternatives to treatment with cryotherapy, informed consent was obtained. We treated a total of 1 lesion(s) with liquid nitrogen. The patient tolerated the procedure well. Aftercare instructions were provided in written and verbal form to the patient. Should any of theselesions recur, the patient should return for biopsy or further evaluation. #Seborrheic keratosis The benign nature of the skin lesion(s) was discussed with the patient. No treatment is required. Irecommend continued observation. Should symptoms or changes develop related to this condition, I would recommend a return visit for reassessment. PATIENT EDUCATION The impression and plans were explained in detail. There were no apparent barriers to learning and understanding. Questions were answered. Associated attestation - Eduarda Angela M.D. - 06/24/2024 2:53 PM CDT I saw and evaluated the patient, participating in the foote elements of the service. I discussed the findings, assessment and plan with the resident/fellow and agree with resident/fellow???s findings and plan as documented in the resident/fellow's note. I was immediately available for the entirety ofthe procedure(s) and present for the foote and critical portions. documented in this encounter Plan of Treatment Not on file documented as of this encounter Visit Diagnoses Diagnosis Keratosis Actinic- Primary Keratosis Seborrheic documented in this encounter
--- OUTSIDE RECORDS SUMMARY | 2024-08-20 11:53 | XMS_ITS | Clinical Summary ---
Author Organization [facility] Address [address] [place] [address] Care Team Providers Care Filament Maker Name Role Phone Unavailable Primary Care Provider Unavailabl e Source Comments Patient records contain information from all sites at [facility]. For routine questions regarding patient records, call [phone] during business hours, M-F 8:00 AM - 5:00 PM Central Time. Record requests for emergency care only can be directed to [phone] at any time.[facility] Active Problems Problem Noted Date Diagnosed Date Supraventricular Tachycardia, Unspecified 2015 Encounters Date Type Department Care Team Description 06/22/2024 3:20 PM CDT Comprehensive Visit Department of Dermatology in [place], [place] [address] [place] [address] Eduarda Angela M.D. Keratosis Actinic (Primary Dx); Keratosis Seborrheic Discharge Disposition: Home or Self Care from Last 3 Months Social History Tobacco Use Types Packs/Day Years Used Date Smoking Tobacco: Never [facility] Utilities Answer Date Recorded In the past 12 months has [employer], gas, oil, or water [employer] threatened to shut off services in your [...] your living situation today? I have a [facility] place to live 06/22/2024 Sex and Gender Information Value Date Recorded Sex Assigned at Male 10/28/2023 9:51 AM SUGAR CANE FARM MANAGER Gender Identity Male 10/28/2023 9:51 AM SUGAR CANE FARM MANAGER Sexual Orientation Straight 10/28/2023 9: 51 AM SUGAR CANE FARM MANAGER Last Filed Vital Signs Vital Sign Reading Time Taken Comments Blood Pressure 143/79 08/01/2016 2:25 PM CDT Pulse 89 08/01/2016 2:25 PM CDT Temperature - - Respiratory Rate 20 08/01/2016 2:25 PM CDT Oxygen Saturation - - Inhaled Oxygen Concentration - - Weight - - Height - - Body Mass Index - - Plan of Treatment Health Maintenance Due Date Last Done Comments CT Colonography 1963 Cologuard 1963 Colonoscopy 1963 Colorectal Cancer Screening 1963 FIT 1963 Fasting Glucose for Diabetes Screening 1963 HIV Screening 1963 Hepatitis C Screening 1963 Lipid (Cholesterol) Screening 1963 Zoster Vaccines (2 of 2) 09/14/2019 07/20/2019, 06/20 Depression Screening (Annual PHQ-2) 11/18/2023 COVID-19 Vaccine ( season) 2024 09/10/2023, 09/05/2022, 09/27/2021, Additional history exists Influenza Vaccine (#1) 2024 , 09/24/2022, 08/30/2021, Additional history exists DTaP,Tdap,and Td Vaccines (3 - Td or Tdap) 04/22/2029 04/22/2019, 02/17/2008, 02/03/1998 Pneumococcal vaccine (0-64 years) Aged Out No longer eligible based on patient's age to complete this topic SURESH Gallardo [id number]
--- OUTSIDE RECORDS SUMMARY | 2024-08-20 11:53 | XMS_ITS | Clinical Summary ---
Author Organization [employer] [facility] Address [place], [place] [address] Care Team Providers Care Overseer Kosher Kitchen Name Role Phone Abisai Riley MD Primary Care Provider Allergies No known active allergies Medications Medication [...] Tetanus booster 02/16/2018 02/17/2008 COVID-19 vaccine series (2023- season) 2024 Influenza for age 50-64 07/19/2024 Tdap Completed 02/17/2008 Pneumococcal series for age 6-64 Aged Out No longer eligible based on patient's age to complete this topic Care Teams Overseer Kosher Kitchen Relationship Specialty Start Date End Date Abisai Riley MD PCP - General Family Practice 09/08/11
--- OUTSIDE RECORDS SUMMARY | 2024-08-20 11:53 | XMS_ITS | Referral Summary ---
Author Organization [facility] Address [address] [place] [address] Care Team Providers Care Correspondence Coordinator Name Role Phone Unavailable Primary Care Provider Unavailabl e Source Comments Patient records contain information from all sites at [facility]. For routine questions regarding patient records, call [phone] during business hours, M-F 8:00 AM - 5:00 PM Central Time. Record requests for emergency care only can be directed to [phone] at any time.[facility] Encounters Date Type Department Care Team Description 06/22/2024 3:20 PM CDT Comprehensive Visit Department of Dermatology in [place], [place] [address] [place] [address] Eduarda Angela M.D. Keratosis Actinic (Primary Dx); Keratosis Seborrheic Discharge Disposition: Home or Self Care from Last 3 Months Active Problems Problem Noted Date Diagnosed Date Supraventricular Tachycardia, Unspecified 2015 Social History Tobacco Use Types Packs/Day Years Used Date Smoking Tobacco: Never [facility] Utilities Answer Date Recorded In the past 12 months has [employer], gas, oil, or water [employer] threatened to shut off services in your [...] money to buy more. Never true 06/22/20 24 Within the past 12 months, t he [...] your living situation today? I have a [facility] place to live 06/22/2024 Sex and Gender Information Value Date Recorded Sex Assigned at Male 10/28/2023 9:51 AM THUMB SEWER Gender Identity Male 10/28/2023 9:51 AM THUMB SEWER Sexual Orientation Straight 10/28/2023 9: 51 AM THUMB SEWER Last Filed Vital Signs Vital Sign Reading Time Taken Comments Blood Pressure 143/79 08/01/2016 2:25 PM CDT Pulse 89 08/01/2016 2:25 PM CDT Temperature - - Respiratory Rate 20 08/01/2016 2:25 PM CDT Oxygen Saturation - - Inhaled Oxygen Concentration - - Weight - - Height - - Body Mass Index - - Plan of Treatment Not on file
[2024-08-20 12:03] LABS: Chloride* 103 mmol/L (96-114)
[2024-08-20 12:04] LABS: Potassium* 3.7 mmol/L (3.6-5.1); Sodium* 139 mmol/L (135-149)
[2024-08-20 12:06] LABS: Creatinine* 0.8 mg/dL (0.5-1.5); Est. Creatinine Clearance* 77.57; Estimated Glomerular Filt Rate 101 ml/min
[2024-08-20 12:07] LABS: Anion Gap 9 mEq/L (7-15); Blood Urea Nitrogen* 13 mg/dL (7-30); Calcium* 9.3 mg/dL (8.4-10.6); Carbon Dioxide* 27 mmol/L (20-32); Glucose* 135 mg/dL (60-115)
[2024-08-20 12:10] LABS: C Reactive Protein* < 0.5 mg/dL (0.5-1.0)
[2024-08-20 12:15] LABS: Appearance Urine Clear (Clear); Bilirubin Urine Negative (Negative); Blood Urine Negative (Negative); Color Urine Yellow (Yellow); Glucose Urine Negative (Negative); Ketones Urine Negative (Negative); Leukocyte Esterase Urine Negative (Negative); Nitrite Urine Negative (Negative); Protein Urine Negative (Negative); Specific Gravity Urine 1.015 (1.000-1.030); Urobilinogen Urine 0.2 (0.2-1.0)
[2024-08-20 12:24] LABS: RBC Urine 0-2 (0-2); WBC Urine 0-2 (0-5)
== END 2024-08-20 12:34 | disposition home or self-care (01) ==
PROVIDERS: Emergency Provider Family Medicine; PCP Family Medicine
DX: R10.2 Pelvic and perineal pain (principal)
CPT/HCPCS: 36415; 80048; 81001; 83605; 85025; 86140; 87086; 99283; 99284

== ENCOUNTER 2025-03-22 08:14 | Outpatient (CLI) | payer OTHER, SELFPAY | END 2025-03-22 08:15 | disposition home or self-care (01) | PROVIDERS: PCP Family Medicine; Visit Provider Family Medicine | DX: E78.2 Mixed hyperlipidemia (principal); Z12.5 Encounter for screening for malignant neoplasm of prostate; Z13.1 Encounter for screening for diabetes mellitus | CPT/HCPCS: 80048; 80061; G0103 ==